=== PATIENT | female | born 1995 | race Caucasian/White ===

== ENCOUNTER 2017-07-02 15:53 | Emergency (ER) | payer MEDICAID | END 2017-07-02 17:13 | disposition home or self-care (01) | LOC: D.ER 15:53 | DX: R56.9 Unspecified convulsions (principal); R51 Headache; R42 Dizziness and giddiness ==

== ENCOUNTER 2017-08-07 18:55 | Emergency (ER) | payer MEDICAID | END 2017-08-07 20:00 | disposition home or self-care (01) | LOC: D.ER 18:55 | DX: R56.9 Unspecified convulsions (principal); R55 Syncope and collapse ==